=== PATIENT | female | born 1955 | race African-American/Black ===

== ENCOUNTER 2016-09-24 13:10 | Emergency (ER) | payer MEDICAID, OTHER ==
[~2016-09-24] VITALS: Ht 162.6 cm; Wt 78.0 kg
[2016-09-24 16:27] LABS: CLARITY URINE CLEAR (CLEAR); COLOR URINE DARK YELLOW (YELLOW); GLUCOSE URINE NEGATIVE (NEGATIVE); KETONES URINE NEGATIVE (NEGATIVE); LEUKOCYTE ESTERASE URINE NEGATIVE (NEGATIVE); NITRITE URINE NEGATIVE (NEGATIVE); OCCULT BLOOD URINE NEGATIVE (NEGATIVE); PH URINE 5.5 (4.5-8.0); PROTEIN URINE NEGATIVE (NEGATIVE); SPECIFIC GRAVITY URINE 1.028 (1.005-1.030)
[2016-09-24 18:36] VITALS: BP 137/83
== END 2016-09-24 18:56 | disposition home or self-care (01) ==
LOC: ER 14:22
DX: R30.0 Dysuria (principal); Z98.890 Other specified postprocedural states
CPT/HCPCS: 81003; 99283

== ENCOUNTER 2016-11-17 16:29 | Emergency (ER) | payer MEDICAID ==
[~2016-11-17] VITALS: Ht 160 cm; Wt 189.0 kg
[2016-11-17] MEDS ORDERED: NITROGLYCERIN OINT 1GM/INCH UDPKT TD STA (17:25)
[2016-11-17] MEDS ORDERED: ASPIRIN 325MG EC TABLET PO ONE (17:30)
[2016-11-17] MEDS ORDERED: MORPHINE SULFATE 4 MG/ML CPJ (NOT FOR IM USE) IV ONE (17:30)
[2016-11-17 17:46] LABS: BASOPHILS % 0.8 % (0.0-2.0); EOSINOPHILS % 1.3 % (0.0-5.0); HEMATOCRIT. 41.1 % (36.0-48.0); HEMOGLOBIN. 13.2 g/dL (12.0-16.0); LYMPHOCYTES % 33.1 % (20.0-50.0); MEAN CORPUSCULAR HEMOGLOBIN 22.7 pg (28.0-32.0); MEAN CORPUSCULAR VOLUME 70.6 fL (81.0-99.0); MEAN PLATELET VOLUME 8.3 fl (7.4-10.4); MONOCYTES % 8.7 % (2.0-8.0); NEUTROPHILS % 56.1 % (40.0-76.0); PLATELET 225 x1000/uL (130-400); RED BLOOD CELL COUNT 5.82 mill/uL (4.2-5.4)
[2016-11-17 17:54] LABS: INR 1.1; PARTIAL THROMBOPLASTIN TIME 28.9 sec (24.0-34.0); PROTHROMBIN TIME 11.2 sec
[2016-11-17 17:59] LABS: CARBON DIOXIDE 33 mEq/L (21-32); CHLORIDE 108 mEq/L (98-107); TROPONIN I < 0.02 ng/mL (0.00-0.04)
[2016-11-17 20:49] VITALS: BP 135/89
== END 2016-11-17 21:17 | disposition left against medical advice (07) ==
LOC: ER 16:40
DX: R07.89 Other chest pain (principal); R03.0 Elevated blood-pressure reading, without diagnosis of hypertension; I42.9 Cardiomyopathy, unspecified
CPT/HCPCS: 36415; 71010; 80053; 83690; 84484; 85025; 85610; 85730; 93005; 96374; 99285; J2270; Z7610

== ENCOUNTER 2016-11-29 10:22 | Emergency (ER) | payer MEDICAID ==
[~2016-11-29] VITALS: Ht 160 cm; Wt 84.0 kg
[2016-11-29] MEDS ORDERED: LORAZEPAM 0.5MG TABLET PO ONE (11:00)
[2016-11-29 11:28] LABS: CARBON DIOXIDE 29 mEq/L (21-32); CHLORIDE 107 mEq/L (98-107)
[2016-11-29 11:29] LABS: TROPONIN I < 0.02 ng/mL (0.00-0.04)
[2016-11-29 12:12] LABS: CLARITY URINE CLEAR (CLEAR); COLOR URINE YELLOW (YELLOW); GLUCOSE URINE NEGATIVE (NEGATIVE); KETONES URINE NEGATIVE (NEGATIVE); LEUKOCYTE ESTERASE URINE NEGATIVE (NEGATIVE); NITRITE URINE NEGATIVE (NEGATIVE); OCCULT BLOOD URINE NEGATIVE (NEGATIVE); PH URINE 7.5 (4.5-8.0); PROTEIN URINE TRACE (NEGATIVE); SPECIFIC GRAVITY URINE 1.013 (1.005-1.030); UROBILINOGEN URINE 0.2 E.U./dL (0.2-1.0)
[2016-11-29 12:27] LABS: BASOPHILS % 0.3 % (0.0-2.0); EOSINOPHILS % 0.1 % (0.0-5.0); HEMATOCRIT. 40.6 % (36.0-48.0); HEMOGLOBIN. 13.2 g/dL (12.0-16.0); LYMPHOCYTES % 22.5 % (20.0-50.0); MEAN CORPUSCULAR VOLUME 70.7 fL (81.0-99.0); MEAN PLATELET VOLUME 8.9 fl (7.4-10.4); MONOCYTES % 7.3 % (2.0-8.0); NEUTROPHILS % 69.8 % (40.0-76.0); PLATELET 222 x1000/uL (130-400); RED BLOOD CELL COUNT 5.74 mill/uL (4.2-5.4)
[2016-11-29] MEDS ORDERED: KETOROLAC 60MG/2ML VIAL IM ONE (12:30)
[2016-11-29 13:10] VITALS: BP 147/71
== END 2016-11-29 13:37 | disposition home or self-care (01) ==
LOC: ER 10:22
DX: F41.9 Anxiety disorder, unspecified (principal); F32.9 Major depressive disorder, single episode, unspecified; I10 Essential (primary) hypertension
CPT/HCPCS: 36415; 80053; 81001; 84484; 85025; 93005; 96372; 99285; J1885; Z7610

== ENCOUNTER 2018-02-23 23:56 | Inpatient (IN) | payer MEDICAID ==
[~2018-02-23] VITALS: Ht 160 cm; Wt 85.7 kg
[2018-02-24] MEDS ORDERED: ASPIRIN 81MG TABLET PO ONE (00:45)
[2018-02-24] MEDS ORDERED: NITROGLYCERIN 0.4MG TABLET SL SL PRN (00:45)
[2018-02-24] MEDS ORDERED: MORPHINE SULFATE 4 MG/ML CPJ (NOT FOR IM USE) IV STA (00:45)
[2018-02-24 01:39] LABS: CLARITY URINE CLEAR (CLEAR); COLOR URINE YELLOW (YELLOW); KETONES URINE NEGATIVE (NEGATIVE); LEUKOCYTE ESTERASE URINE NEGATIVE (NEGATIVE); NITRITE URINE NEGATIVE (NEGATIVE); OCCULT BLOOD URINE NEGATIVE (NEGATIVE); PROTEIN URINE NEGATIVE (NEGATIVE); SPECIFIC GRAVITY URINE 1.021 (1.005-1.030)
[2018-02-24 01:49] LABS: BASOPHILS % 0.6 % (0.0-2.0); EOSINOPHILS % 1.8 % (0.0-5.0); HEMATOCRIT. 39.4 % (36.0-48.0); HEMOGLOBIN. 12.5 g/dL (12.0-16.0); LYMPHOCYTES % 40.1 % (20.0-50.0); MEAN CORPUSCULAR HEMOGLOBIN 22.7 pg (28.0-32.0); MEAN CORPUSCULAR VOLUME 71.8 fL (81.0-99.0); MEAN PLATELET VOLUME 8.7 fl (7.4-10.4); MONOCYTES % 9.3 % (2.0-8.0); NEUTROPHILS % 48.2 % (40.0-76.0); PLATELET 208 x1000/uL (130-400); RED BLOOD CELL COUNT 5.48 mill/uL (4.2-5.4); RED CELL DISTRIBUTION WIDTH 14.7 % (11.6-14.6)
[2018-02-24 01:58] LABS: CHLORIDE 111 mEq/L (98-107)
[2018-02-24 02:00] LABS: INR 1.1; PARTIAL THROMBOPLASTIN TIME 30.7 sec (23.4-31.0); PROTHROMBIN TIME 10.8 sec (9.1-11.1)
[2018-02-24] MEDS ORDERED: POTASSIUM CHLORIDE 20MEQ TABLET SR PO SCH (02:30)
[2018-02-24] MEDS ORDERED: ENOXAPARIN 100MG/ML SYR SUBCUT SCH (03:00)
[2018-02-24 05:39] VITALS: BP 164/78
[2018-02-24 08:00] VITALS: BP 126/43
[2018-02-24] MEDS ORDERED: HYDROCODONE/ACETAMINOPHEN 10/325MG TABLET PO PRN (08:00)
[2018-02-24] MEDS ORDERED: ACETAMINOPHEN 650MG SUPP PR PRN (08:00)
[2018-02-24] MEDS ORDERED: MAGNESIUM/ALUMINUM HYDROXIDE/SIMETHICONE 30ML UDC PO PRN (08:00)
[2018-02-24] MEDS ORDERED: ACETAMINOPHEN 325MG TABLET PO PRN (08:00)
[2018-02-24] MEDS ORDERED: ONDANSETRON HCL 4MG/2ML INJ IV PRN ×2 (08:00→14:15)
[2018-02-24] MEDS ORDERED: ACETAMINOPHEN 650MG/20.3ML UDC GT PRN (08:00)
[2018-02-24] MEDS ORDERED: HYDROCODONE/ACETAMINOPHEN 5/325MG TABLET PO PRN (08:00)
[2018-02-24] MEDS ORDERED: REGADENOSON 0.4 MG/5 ML IV ONE ×2 (09:00→11:17)
[2018-02-24] MEDS ORDERED: DEXTROSE 50% WATER 50ML SYRINGE IV PRN (11:45)
[2018-02-24 12:00] VITALS: BP 201/85
[2018-02-24] MEDS: METOPROLOL TARTRATE 25MG TABLET PO SCH ×2 (12:23→21:00)
[2018-02-24] MEDS: BLOOD SUGAR DIAGNOSTIC STRIP TEST SCH ×3 (12:44→20:51)
[2018-02-24] MEDS: INSULIN LISPRO 100 UNITS/ML SUBCUT SCH ×3 (12:44→20:51)
[2018-02-24 13:46] VITALS: BP 165/76
[2018-02-24] MEDS ORDERED: CLONIDINE 0.2MG TABLET PO PRN (14:00)
[2018-02-24] MEDS: CLONIDINE 0.2MG TABLET PO SCH ×2 (14:17→22:08)
[2018-02-24] MEDS ORDERED: DIATR MEGLU/DIATRIZOATE SOLN 30ML PO SCH (15:45)
[2018-02-24 16:00] VITALS: BP 138/63
[2018-02-24 16:52] LABS: CREATINE KINASE 101 IU/L (26-192)
[2018-02-24 16:55] LABS: CREATINE KINASE MB FRACTION 1.6 ng/mL (0.5-3.6)
[2018-02-24 17:20] LABS: *AMPHETAMINES SCREEN URINE NEGATIVE (NEGATIVE)
[2018-02-24 17:21] LABS: *BARBITURATES SCREEN URINE NEGATIVE (NEGATIVE); *BENZODIAZEPINES SCREEN URINE NEGATIVE (NEGATIVE); *COCAINE SCREEN URINE NEGATIVE (NEGATIVE); METHADONE URINE SCREEN NEGATIVE (NEGATIVE); OPIATES URINE SCREEN PRESUMTIVE POSITIVE (NEGATIVE)
[2018-02-24 17:22] LABS: CANNABINOID URINE SCREEN NEGATIVE (NEGATIVE); PHENCYCLIDINE URINE SCREEN NEGATIVE (NEGATIVE)
[2018-02-24 20:15] VITALS: BP 146/60
[2018-02-24] MEDS: ATORVASTATIN CALCIUM 10MG TABLET PO SCH (22:09)
[2018-02-24] MEDS ORDERED: IOHEXOL-300 100 ML BOTTLE ONE (22:22)
[2018-02-25] VITALS: BP 134/55
[2018-02-25 00:32] LABS: CREATINE KINASE 67 IU/L (26-192)
[2018-02-25 00:33] LABS: CREATINE KINASE MB FRACTION 1.2 ng/mL (0.5-3.6)
[2018-02-25 04:00] VITALS: BP 133/60
[2018-02-25] MEDS: BLOOD SUGAR DIAGNOSTIC STRIP TEST SCH ×4 (06:22→21:01)
[2018-02-25 06:34] LABS: BASOPHILS % 0.8 % (0.0-2.0); EOSINOPHILS % 1.3 % (0.0-5.0); HEMATOCRIT. 37.7 % (36.0-48.0); LYMPHOCYTES % 40.1 % (20.0-50.0); MEAN CORPUSCULAR HEMOGLOBIN 22.8 pg (28.0-32.0); MEAN CORPUSCULAR VOLUME 71.7 fL (81.0-99.0); MEAN PLATELET VOLUME 8.6 fl (7.4-10.4); MONOCYTES % 9.5 % (2.0-8.0); NEUTROPHILS % 48.3 % (40.0-76.0); PLATELET 201 x1000/uL (130-400); RED BLOOD CELL COUNT 5.26 mill/uL (4.2-5.4); RED CELL DISTRIBUTION WIDTH 15.1 % (11.6-14.6)
[2018-02-25 07:15] LABS: CHLORIDE 109 mEq/L (98-107)
[2018-02-25] MEDS: INSULIN LISPRO 100 UNITS/ML SUBCUT SCH ×4 (07:15→21:00)
[2018-02-25 07:26] LABS: LDL CHOLESTEROL 56 mg/dL (5-100)
[2018-02-25 07:29] LABS: HDL CHOLESTEROL 50 mg/dL (40-59)
[2018-02-25 07:33] LABS: T4 FREE 1.25 ng/dL (0.76-1.46)
[2018-02-25 08:00] VITALS: BP 160/64
[2018-02-25] MEDS: CLONIDINE 0.2MG TABLET PO SCH ×2 (08:54→20:45)
[2018-02-25] MEDS: ENOXAPARIN 30MG/0.3ML SYR SUBCUT SCH ×2 (08:55→20:43)
[2018-02-25] MEDS: METOPROLOL TARTRATE 25MG TABLET PO SCH ×2 (08:55→20:44)
[2018-02-25] MEDS ORDERED: CLONIDINE 0.2MG TABLET PO PRN (10:30)
[2018-02-25 12:00] VITALS: BP 110/53
[2018-02-25] MEDS ORDERED: KETOROLAC 15MG/ML VIAL IV PRN (13:45)
[2018-02-25] MEDS: SODIUM CHLORIDE 0.45% 1,000 ML IV SCH (15:36)
[2018-02-25 16:00] VITALS: BP 110/50
[2018-02-25 20:00] VITALS: BP 120/53
[2018-02-25] MEDS: AMLODIPINE 2.5MG TABLET PO SCH (20:44)
[2018-02-25] MEDS: ATORVASTATIN CALCIUM 10MG TABLET PO SCH (20:44)
[2018-02-26] VITALS: BP 110/43
[2018-02-26] MEDS: SODIUM CHLORIDE 0.45% 1,000 ML IV SCH (01:46)
[2018-02-26 04:00] VITALS: BP 108/46
[2018-02-26 06:28] LABS: BASOPHILS % 0.5 % (0.0-2.0); EOSINOPHILS % 1.9 % (0.0-5.0); HEMATOCRIT. 35.9 % (36.0-48.0); HEMOGLOBIN. 11.6 g/dL (12.0-16.0); LYMPHOCYTES % 52.4 % (20.0-50.0); MEAN CORPUSCULAR HEMOGLOBIN 23.4 pg (28.0-32.0); MEAN CORPUSCULAR VOLUME 72.4 fL (81.0-99.0); MEAN PLATELET VOLUME 9.2 fl (7.4-10.4); MONOCYTES % 8.2 % (2.0-8.0); PLATELET 190 x1000/uL (130-400); RED BLOOD CELL COUNT 4.96 mill/uL (4.2-5.4); RED CELL DISTRIBUTION WIDTH 14.7 % (11.6-14.6)
[2018-02-26 06:40] LABS: CHLORIDE 111 mEq/L (98-107)
[2018-02-26 06:47] LABS: PHOSPHORUS 2.7 mg/dL (2.5-4.9)
[2018-02-26] MEDS: BLOOD SUGAR DIAGNOSTIC STRIP TEST SCH (06:50)
[2018-02-26 08:00] VITALS: BP 146/58
[2018-02-26] MEDS: AMLODIPINE 2.5MG TABLET PO SCH (08:56)
[2018-02-26] MEDS: METOPROLOL TARTRATE 25MG TABLET PO SCH (08:56)
[2018-02-26] MEDS: ENOXAPARIN 30MG/0.3ML SYR SUBCUT SCH (09:00)
[2018-02-26] MEDS: CLONIDINE 0.2MG TABLET PO SCH (09:00)
[2018-02-26] MEDS ORDERED: AMLO2.5T45 PO (11:24)
[2018-02-26] MEDS ORDERED: ATOR10TA PO (11:24)
[2018-02-26] MEDS ORDERED: METO25TA6 PO (11:24)
[2018-02-26 12:00] VITALS: BP 128/59
[2018-02-26 13:54] VITALS: BP 128/54
== END 2018-02-26 16:37 | disposition home or self-care (01) | DRG 465 ==
LOC: ER 23:58 → 6WST 02-24 02:40 → EDBEDREQTM 02-24 02:43 → EDBEDREQ 02-24 02:43 → ENRESERV 02-24 03:48
PROVIDERS: ADMIT Internal Medicine; ATTEND Internal Medicine
DX: N20.0 Calculus of kidney (principal); I42.9 Cardiomyopathy, unspecified; E11.9 Type 2 diabetes mellitus without complications; E87.6 Hypokalemia; F41.9 Anxiety disorder, unspecified; I10 Essential (primary) hypertension; I25.10 Atherosclerotic heart disease of native coronary artery without angina pectoris; J44.9 Chronic obstructive pulmonary disease, unspecified; Z79.84 Long term (current) use of oral hypoglycemic drugs; Z87.891 Personal history of nicotine dependence; Z98.82 Breast implant status; Z98.891 History of uterine scar from previous surgery
CPT/HCPCS: 36415; 71045; 74018; 74177; 78452; 80048; 80053; 80061; 80305; 81003; 82550; 82553; 82962; 83036; 83605; 83690; 83735; 83880; 84100; 84439; 84443; 84481; 84484; 85025; 85379; 85610; 85730; 93005; 93306; 96372; 96374; 99285; A9500; J1650; J2270; J2405; J2785; Q9963; Q9967

== ENCOUNTER 2018-03-07 01:00 | Emergency (ER) | payer MEDICAID ==
[~2018-03-07] VITALS: Ht 160 cm; Wt 68.0 kg
[~2018-03-07 01:00] MED LIST: AMLO2.5T45 PO; ATOR10TA PO; METO25TA6 PO
[2018-03-07] MEDS ORDERED: ONDANSETRON 4MG ODT PO ONE (02:00)
[2018-03-07] MEDS ORDERED: MORPHINE SULFATE 10 MG/ML CPJ IM ONE (02:00)
[2018-03-07] MEDS ORDERED: MORPHINE SULFATE 10 MG/ML CPJ IM NR (03:30)
[2018-03-07] MEDS ORDERED: ONDANSETRON 4MG ODT PO NR (03:30)
[2018-03-07] MEDS ORDERED: IBUPROFEN 600MG TABLET PO NR (03:30)
[2018-03-07] MEDS ORDERED: ACETAMINOPHEN 325MG TABLET PO NR (03:30)
[2018-03-07] MEDS ORDERED: MORPHINE SULFATE 4 MG/ML CPJ (NOT FOR IM USE) IV ONE (03:56)
[2018-03-07 04:55] VITALS: BP 130/76
== END 2018-03-07 05:01 | disposition home or self-care (01) ==
LOC: ER 01:00
DX: S42.392A Other fracture of shaft of left humerus, initial encounter for closed fracture (principal); S09.8XXA Other specified injuries of head, initial encounter; S00.83XA Contusion of other part of head, initial encounter; Y04.0XXA Assault by unarmed brawl or fight, initial encounter; Y93.89 Activity, other specified; Y92.89 Other specified places as the place of occurrence of the external cause; Y99.8 Other external cause status
CPT/HCPCS: 70450; 70486; 73030; 96372; 99284; J2270; Q0162; Z7610; A4565; L3670

== ENCOUNTER 2018-07-16 00:40 | Emergency (ER) | payer MEDICAID ==
[~2018-07-16] VITALS: Ht 177.8 cm; Wt 84.0 kg
[2018-07-16] MEDS ORDERED: LABETALOL HCL 20MG/4ML CARPUJECT IV ONE (01:15)
[2018-07-16] MEDS ORDERED: NITROGLYCERIN 0.4MG TABLET SL SL PRN (01:15)
[2018-07-16 02:05] LABS: CHLORIDE 106 mEq/L (98-107)
[2018-07-16 02:07] LABS: BASOPHILS % 0.4 % (0.0-2.0); EOSINOPHILS % 2.2 % (0.0-5.0); HEMATOCRIT. 40.1 % (36.0-48.0); HEMOGLOBIN. 12.6 g/dL (12.0-16.0); LYMPHOCYTES % 43.8 % (20.0-50.0); MEAN CORPUSCULAR HEMOGLOBIN 22.4 pg (28.0-32.0); MEAN CORPUSCULAR VOLUME 70.9 fL (81.0-99.0); MEAN PLATELET VOLUME 8.2 fl (7.4-10.4); NEUTROPHILS % 45.6 % (40.0-76.0); PLATELET 228 x1000/uL (130-400); RED BLOOD CELL COUNT 5.66 mill/uL (4.2-5.4); RED CELL DISTRIBUTION WIDTH 14.9 % (11.6-14.6)
[2018-07-16] MEDS ORDERED: KETOROLAC 15MG/ML VIAL IV ONE (04:45)
[2018-07-16 05:04] VITALS: BP 134/81
== END 2018-07-16 04:56 | disposition home or self-care (01) ==
LOC: ER 00:40 → CANBEDREQ 18:00
DX: R07.89 Other chest pain (principal); E87.6 Hypokalemia; I10 Essential (primary) hypertension; I42.9 Cardiomyopathy, unspecified; E78.00 Pure hypercholesterolemia, unspecified
CPT/HCPCS: 36415; 71045; 80053; 83880; 84484; 85025; 93005; 96374; 99284; J1885

== ENCOUNTER 2019-07-29 10:40 | Emergency (ER) | payer MEDICAID ==
[~2019-07-29] VITALS: Ht 157.5 cm; Wt 87.6 kg
[2019-07-29] MEDS ORDERED: SODIUM CHLORIDE 0.9% 1,000 ML IV ONE (13:45)
[2019-07-29] MEDS ORDERED: METOCLOPRAMIDE HCL 10MG/2ML VIAL IV ONE (13:45)
[2019-07-29 14:06] LABS: BASOPHILS % 0.6 % (0.0-2.0); EOSINOPHILS % 1.9 % (0.0-5.0); HEMATOCRIT. 43.7 % (36.0-48.0); HEMOGLOBIN. 14.1 g/dL (12.0-16.0); LYMPHOCYTES % 38.8 % (20.0-50.0); MEAN CORPUSCULAR HEMOGLOBIN 23.2 pg (28.0-32.0); MEAN PLATELET VOLUME 8.4 fl (7.4-10.4); MONOCYTES % 7.4 % (2.0-8.0); NEUTROPHILS % 51.3 % (40.0-76.0); PLATELET 227 x1000/uL (130-400); RED BLOOD CELL COUNT 6.07 mill/uL (4.2-5.4); RED CELL DISTRIBUTION WIDTH 15.3 % (11.6-14.6)
[2019-07-29 14:13] LABS: CHLORIDE 107 mEq/L (98-107)
[2019-07-29] MEDS ORDERED: IOHEXOL-350 100 ML BOTTLE ONE (15:09)
[2019-07-29] MEDS ORDERED: POTASSIUM CHLORIDE 20MEQ TABLET SR PO ONE (16:00)
[2019-07-29 16:33] VITALS: BP 171/69
== END 2019-07-29 16:40 | disposition home or self-care (01) ==
LOC: ER 10:40
DX: R51 Headache (principal); I10 Essential (primary) hypertension; E78.00 Pure hypercholesterolemia, unspecified
CPT/HCPCS: 36415; 70496; 70498; 80053; 82962; 85025; 96374; 99284; J2765; J7030; Q9967

== ENCOUNTER 2020-01-10 22:15 | Emergency (ER) | payer OTHER, MEDICAID ==
[~2020-01-10] VITALS: Ht 157.5 cm; Wt 68.0 kg
[2020-01-11] MEDS ORDERED: KETOROLAC 30MG/ML VIAL IM ONE (00:15)
[2020-01-11 00:37] VITALS: BP 169/99
[2020-01-11 01:02] LABS: CLARITY URINE CLOUDY (CLEAR); COLOR URINE YELLOW (YELLOW); KETONES URINE TRACE (NEGATIVE); LEUKOCYTE ESTERASE URINE NEGATIVE (NEGATIVE); NITRITE URINE NEGATIVE (NEGATIVE); OCCULT BLOOD URINE NEGATIVE (NEGATIVE); PH URINE 5.5 (4.5-8.0); PROTEIN URINE TRACE (NEGATIVE)
[2020-01-11 02:30] LABS: BASOPHILS % 1.1 % (0.0-2.0); EOSINOPHILS % 2.3 % (0.0-5.0); HEMATOCRIT. 39.9 % (36.0-48.0); HEMOGLOBIN. 12.8 g/dL (12.0-16.0); MEAN CORPUSCULAR HEMOGLOBIN 22.8 pg (28.0-32.0); MEAN CORPUSCULAR VOLUME 71.2 fL (81.0-99.0); MEAN PLATELET VOLUME 8.7 fl (7.4-10.4); MONOCYTES % 8.1 % (2.0-8.0); NEUTROPHILS % 51.5 % (40.0-76.0); PLATELET 206 x1000/uL (130-400); RED CELL DISTRIBUTION WIDTH 14.8 % (11.6-14.6)
[2020-01-11 02:33] LABS: CHLORIDE 109 mEq/L (98-107)
== END 2020-01-11 03:08 | disposition home or self-care (01) ==
LOC: ER 22:15
DX: R33.9 Retention of urine, unspecified (principal); I10 Essential (primary) hypertension; Z98.890 Other specified postprocedural states; Z79.899 Other long term (current) drug therapy
CPT/HCPCS: 36415; 80053; 81003; 85025; 93005; 96372; 99284; J1885

== ENCOUNTER 2021-02-14 09:32 | Inpatient (IN) | payer OTHER, MEDICAID ==
[~2021-02-14] VITALS: Ht 157.5 cm; Wt 79.8 kg
[2021-02-14] MEDS ORDERED: ONDANSETRON HCL 4MG/2ML INJ IV STA (09:55)
[2021-02-14] MEDS ORDERED: MORPHINE SULFATE 4 MG/ML CPJ (NOT FOR IM USE) IV STA (09:55)
[2021-02-14] MEDS ORDERED: SODIUM CHLORIDE 0.9% 1,000 ML IV ONE (10:00)
[2021-02-14] MEDS ORDERED: MORPHINE SULFATE 2 MG/ML CPJ (NOT FOR IM USE) IV STA (10:10)
[2021-02-14 10:14] LABS: BASOPHILS % 0.3 % (0.0-2.0); EOSINOPHILS % 0.5 % (0.0-5.0); HEMATOCRIT. 38.9 % (36.0-48.0); HEMOGLOBIN. 12.6 g/dL (12.0-16.0); LYMPHOCYTES % 24.6 % (20.0-50.0); MEAN CORPUSCULAR HEMOGLOBIN 23.1 pg (28.0-32.0); MEAN CORPUSCULAR VOLUME 71.4 fL (81.0-99.0); MEAN PLATELET VOLUME 8.2 fl (7.4-10.4); MONOCYTES % 6.9 % (2.0-8.0); NEUTROPHILS % 67.7 % (40.0-76.0); PLATELET 206 x1000/uL (130-400); RED BLOOD CELL COUNT 5.45 mill/uL (4.2-5.4); RED CELL DISTRIBUTION WIDTH 15.4 % (11.6-14.6)
[2021-02-14 10:23] LABS: CHLORIDE 110 mEq/L (98-107)
[2021-02-14 10:27] LABS: ETHANOL BLOOD < 10 mg/dL
[2021-02-14 10:43] LABS: CLARITY URINE CLEAR (CLEAR); COLOR URINE YELLOW (YELLOW); KETONES URINE NEGATIVE (NEGATIVE); LEUKOCYTE ESTERASE URINE NEGATIVE (NEGATIVE); NITRITE URINE NEGATIVE (NEGATIVE); OCCULT BLOOD URINE NEGATIVE (NEGATIVE); PH URINE 7.5 (4.5-8.0); PROTEIN URINE 1+ (NEGATIVE); SPECIFIC GRAVITY URINE 1.008 (1.005-1.030); UROBILINOGEN URINE 0.2 E.U./dL (0.2-1.0)
[2021-02-14 10:55] LABS: *AMPHETAMINES SCREEN URINE NEGATIVE (NEGATIVE); *BARBITURATES SCREEN URINE NEGATIVE (NEGATIVE); *BENZODIAZEPINES SCREEN URINE NEGATIVE (NEGATIVE); *COCAINE SCREEN URINE NEGATIVE (NEGATIVE); METHADONE URINE SCREEN NEGATIVE (NEGATIVE); OPIATES URINE SCREEN NEGATIVE (NEGATIVE)
[2021-02-14 10:56] LABS: CANNABINOID URINE SCREEN NEGATIVE (NEGATIVE); PHENCYCLIDINE URINE SCREEN NEGATIVE (NEGATIVE)
[2021-02-14] MEDS ORDERED: POTASSIUM CHLORIDE 20MEQ TABLET SR PO NR (11:30)
[2021-02-14] MEDS ORDERED: HYDRALAZINE 20MG/ML VIAL IV ONE (11:45)
[2021-02-14] MEDS ORDERED: ONDANSETRON HCL 4MG/2ML INJ IV PRN (14:15)
[2021-02-14] MEDS ORDERED: HYDRALAZINE 20MG/ML VIAL IV PRN (14:15)
[2021-02-14] MEDS ORDERED: IPRATROPIUM/ALBUTEROL 0.5-3(2.5)MG/3ML NEB HHN PRN (14:15)
[2021-02-14] MEDS ORDERED: ACETAMINOPHEN 325MG TABLET PO PRN (14:15)
[2021-02-14] MEDS ORDERED: DIPHENHYDRAMINE 50MG/ML VIAL IV PRN (14:15)
[2021-02-14] MEDS ORDERED: MORPHINE SULFATE 2 MG/ML CPJ (NOT FOR IM USE) IV PRN (14:30)
[2021-02-14] MEDS ORDERED: ENOXAPARIN 40MG/0.4ML SYR SUBCUT SCH (14:30)
[2021-02-14] MEDS ORDERED: NALOXONE HCL 0.4MG/ML VIAL IV PRN (14:30)
[2021-02-14 15:00] VITALS: BP 165/79
[2021-02-14 16:00] VITALS: BP 175/73
[2021-02-14] MEDS: CLONIDINE 0.1MG TABLET PO PRN (16:24)
[2021-02-14 20:00] VITALS: BP 123/53
[2021-02-14] MEDS: AMLODIPINE 5MG TABLET PO SCH (20:51)
[2021-02-15] VITALS: BP 118/60
[2021-02-15 04:30] VITALS: BP 112/68
[2021-02-15 08:00] VITALS: BP 159/77
[2021-02-15] MEDS: AMLODIPINE 5MG TABLET PO SCH ×2 (09:00→20:48)
[2021-02-15 10:05] LABS: BASOPHILS % 0.2 % (0.0-2.0); EOSINOPHILS % 1.5 % (0.0-5.0); HEMATOCRIT. 39.3 % (36.0-48.0); HEMOGLOBIN. 12.7 g/dL (12.0-16.0); LYMPHOCYTES % 32.9 % (20.0-50.0); MEAN CORPUSCULAR HEMOGLOBIN 23.2 pg (28.0-32.0); MEAN CORPUSCULAR VOLUME 71.9 fL (81.0-99.0); MEAN PLATELET VOLUME 8.5 fl (7.4-10.4); MONOCYTES % 8.9 % (2.0-8.0); NEUTROPHILS % 56.5 % (40.0-76.0); PLATELET 214 x1000/uL (130-400); RED BLOOD CELL COUNT 5.46 mill/uL (4.2-5.4); RED CELL DISTRIBUTION WIDTH 15.8 % (11.6-14.6)
[2021-02-15 10:10] LABS: CHLORIDE 109 mEq/L (98-107)
[2021-02-15 10:24] LABS: LDL CHOLESTEROL 67 mg/dL (5-100)
[2021-02-15 10:25] LABS: HDL CHOLESTEROL 70 mg/dL (40-59)
[2021-02-15 12:00] VITALS: BP_SYST 147; BP_SYST 166; BP_DIAS 100; BP_DIAS 61
[2021-02-15] MEDS: CLONIDINE 0.1MG TABLET PO PRN (14:56)
[2021-02-15] MEDS ORDERED: AMLODIPINE 5MG TABLET PO NR (15:00)
[2021-02-15 16:00] VITALS: BP 108/55
[2021-02-15] MEDS ORDERED: ENOXAPARIN 30MG/0.3ML SYR SUBCUT SCH (18:00)
[2021-02-15 20:00] VITALS: BP 111/48
[2021-02-16] VITALS: BP 134/47
[2021-02-16 04:00] VITALS: BP 140/54
[2021-02-16 08:00] VITALS: BP 143/48
[2021-02-16] MEDS: AMLODIPINE 5MG TABLET PO SCH (09:00)
[2021-02-16] MEDS ORDERED: POLYETHYLENE GLYCOL 3350 (17GM) 1 DOSE PACK PO SCH (09:45)
[2021-02-16] MEDS ORDERED: LACTULOSE 20G/30ML UDC PO NR (11:00)
[2021-02-16 12:00] VITALS: BP 154/76
[2021-02-16] MEDS ORDERED: AMLODIPINE 5MG TABLET PO NR (12:15)
[2021-02-16 13:09] LABS: HEMATOCRIT 44.7 % (36.0-48.0); HEMOGLOBIN 14.1 g/dL (12.0-16.0)
[2021-02-16 16:50] VITALS: BP 154/76
== END 2021-02-16 18:20 | disposition home or self-care (01) | DRG 244 ==
LOC: ER 09:32 → 8WST 13:01 → EDBEDREQ 13:14 → EDBEDREQTM 13:14 → ENRESERV 13:28
PROVIDERS: ADMIT Internal Medicine; ATTEND Internal Medicine
DX: K57.91 Diverticulosis of intestine, part unspecified, without perforation or abscess with bleeding (principal); D25.9 Leiomyoma of uterus, unspecified; K64.9 Unspecified hemorrhoids; E87.6 Hypokalemia; I16.0 Hypertensive urgency; I12.9 Hypertensive chronic kidney disease with stage 1 through stage 4 chronic kidney disease, or unspecified chronic kidney disease; N18.9 Chronic kidney disease, unspecified; Z79.899 Other long term (current) drug therapy; N20.0 Calculus of kidney
CPT/HCPCS: 36415; 71045; 74176; 80053; 80061; 80305; 80320; 81003; 83605; 83880; 84443; 84484; 85014; 85018; 85025; 86850; 86900; 93970; 99291; J0360; J2270; J2405; J7030; G0480

== ENCOUNTER 2021-02-18 01:38 | Emergency (ER) | payer OTHER, MEDICAID ==
[~2021-02-18] VITALS: Ht 157.5 cm; Wt 64.0 kg
[2021-02-18 02:04] VITALS: BP 198/86
[2021-02-18] MEDS ORDERED: AMLO2.5T45 PO ×3 (03:01)
[2021-02-18] MEDS ORDERED: AMLODIPINE 2.5MG TABLET PO ONE (03:15)
== END 2021-02-18 03:44 | disposition home or self-care (01) ==
LOC: ER 01:38
DX: I10 Essential (primary) hypertension (principal); R51.9 Headache, unspecified; R10.84 Generalized abdominal pain; Z79.899 Other long term (current) drug therapy
CPT/HCPCS: 99283

== ENCOUNTER 2025-02-01 04:23 | Emergency (ER) | payer BC, OTHER ==
[~2025-02-01] VITALS: Ht 157.5 cm; Wt 68.4 kg
[~2025-02-01 04:23] MED LIST changes: -AMLO2.5T45 PO; +AMLO5TAB88 PO; +ASPI-1406 PO
[2025-02-01 04:26] VITALS: TEMP 37; O2SAT 98
[2025-02-01] MEDS: ONDANSETRON HCL 4MG/2ML INJ IV ONE (05:00)
[2025-02-01] MEDS: MORPHINE SULFATE 4 MG/ML INJ (FOR IV/IM USE) IV ONE (05:00)
[2025-02-01 05:14] LABS: BASOPHILS % 0.4 % (0.0-2.0); EOSINOPHILS % 6.8 % (0.0-5.0); HEMATOCRIT. 42.2 % (36.0-48.0); HEMOGLOBIN. 13.1 g/dL (12.0-16.0); LYMPHOCYTES % 46.3 % (20.0-50.0); MEAN PLATELET VOLUME 8.6 fl (7.4-10.4); MONOCYTES % 9.2 % (2.0-8.0); NEUTROPHILS % 37.3 % (40.0-76.0); PLATELET 214 x1000/uL (130-400); RED BLOOD CELL COUNT 5.88 mill/uL (4.2-5.4); RED CELL DISTRIBUTION WIDTH 15.0 % (11.6-14.6)
[2025-02-01 05:28] LABS: CREATININE 0.7 mg/dL (0.6-1.0); UREA NITROGEN BLOOD 12 mg/dL (9-23)
[2025-02-01 05:29] LABS: TROPONIN I HIGH SENSITIVITY 4 ng/L (3.0-34)
[2025-02-01 06:09] LABS: INR 1.0
[2025-02-01 06:41] VITALS: BP 171/69; PULSE 72; RESP 18; O2SAT 99
[2025-02-01 06:55] LABS: ASPARTATE AMINOTRANSFERASE 67 IU/L (<34); BILIRUBIN DIRECT 0.2 mg/dL (<=3.0); BILIRUBIN TOTAL 0.6 mg/dL (0.1-1.0); PROTEIN TOTAL 7.6 g/dL (6.0-8.3)
== END 2025-02-01 07:16 | disposition left against medical advice (07) ==
LOC: ER 04:23 → EDBEDREQ 06:20 → EDBEDREQTM 06:20 → ER 07:16 → CMPBEDREQ 19:27
DX: R07.89 Other chest pain (principal); R20.0 Anesthesia of skin; I10 Essential (primary) hypertension; I42.9 Cardiomyopathy, unspecified; Z79.899 Other long term (current) drug therapy; Z98.82 Breast implant status
CPT/HCPCS: 99291; 71275; 96374; 71045; 96375; 80076; 80048; 85025; 85610; 85730; 84484; 36415; 70496; 70498; 93005; 70450; Q9967; J2405; J2270